=== PATIENT | male | born 2000 | race Caucasian/White ===

== ENCOUNTER 2023-02-26 21:43 | Emergency (ER) | payer OTHER, SELFPAY ==
[2023-02-26 21:45] VITALS: BP 107/65; PULSE 65; RESP 16; TEMP 36.8; O2SAT 98
--- NOTE | 2023-02-26 22:08 | ED.LOWEXI1 ---
HPI - Extremity Injury (Lower) General Chief Complaint: Extremity Injury, Lower Stated Complaint: LOWER EXTREMITY INJURY Time Seen by Provider: 02/26/23 22:06 Mode of arrival: Wheelchair History of Present Illness HPI Narrative: skate boarding about 4 hours ago and twist right ankle. Now presents with pain and swelling. Denies numbness or weakness. Denies other injury Related Data Allergies Allergy/AdvReac Type Severity Reaction Status Date / Time No Known Drug Allergies Allergy Verified 02/26/23 21:50 Review of Systems ROS Status of ROS 10 or more systems reviewed and unremarkable except as noted in history and below [facility] Social History Smoking status: Current every day smoker Exam Constitutional Vital Signs - 24 hr 02/26/23 21:45 Temperature 98.2 F Pulse Rate [Monitor] 65 Respiratory Rate 16 Blood Pressure [Left Arm] 107/65 Pulse Oximetry 98 Common normals: no apparent distress, average body habitus, oriented x3, no limitations and healthy appearing HENMT Common normals: normocephalic and head/scalp atraumatic Eye Common normals: EOMs intact bilaterally and conjunctivae normal Respiratory Common normals: normal respiratory effort, no retractions and no use of accessory muscles Cardio Common normals: regular rate, regular rhythm, S1 normal heart sound and S2 normal heart sound GI Common normals: Normal to inspection, nondistended, normoactive bowel sounds present Extremity Other: mod swelling right lat. malleolus Neuro Common normals: oriented x3, CN's II-XII intact bilaterally, moves all extremities and no focal motor deficits Psych Appearance: grossly normal Course Vital Signs Vital signs: Vital Signs Temperature 98.2 F 02/26/23 21:45 Pulse Rate 65 02/26/23 21:45 Respiratory Rate 16 02/26/23 21:45 Blood Pressure 107/65 02/26/23 21:45 Pulse Oximetry 98 02/26/23 21:45 Temperature 98.2 F 02/26/23 21:45 Pulse Rate 65 02/26/23 21:45 Respiratory Rate 16 02/26/23 21:45 Blood Pressure 107/65 02/26/23 21:45 Pulse Oximetry 98 02/26/23 21:45 MDM - Extremity Injury (Lower) MDM Narrative Medical decision making narrative: patient presents after ankle sprain injury on his skate board. Has focal swelling right lateral malleolus. xray neg for fracture. Patient provided with an air splint and discharged home Discharge Plan Discharge Chief Complaint: Extremity Injury, Lower Clinical Impression: Ankle sprain and strain Patient Disposition: Home, Self-Care Instructions: Ankle Sprain (ED) Stand Alone Forms: Portal Instructions Referrals: Physician,Non-Staff, MD [Primary Care Provider] - 1 week
--- NOTE | 2023-02-26 22:10 | XR_ITS ---
The [address] [address] Patient Name: TIKI PONCE MRN: [id number] date: 2000 Sex: M Assigned Patient Location: ER Current Patient Location: ER Accession/Order Number: [id number] Exam Date: 02/26/2023 22:16 Report Date: 02/26/2023 22:34 At the request of: HUGO SANTOS Procedure: XR ankle RT min 3V EXAM: XR ankle RT min 3V HISTORY: Lateral ankle pain COMPARISON: None. TECHNIQUE: 3 views FINDINGS: IMPRESSION: Lateral subcutaneous soft tissue edema. No osseous lesion, fracture, dislocation or subluxation. Joint spaces are normal. No visualized joint effusion. Electronically authenticated by: VIRGIE TALBERT Date: 02/26/2023 22:34
[2023-02-26] MEDS: IBUPROFEN 400 MG TABLET 800 MG PO (23:38)
== END 2023-02-26 23:43 | disposition home or self-care (01) ==
PROVIDERS: Emergency Provider Internal Medicine
DX: S93.401A Sprain of unspecified ligament of right ankle, initial encounter (principal); S96.911A Strain of unspecified muscle and tendon at ankle and foot level, right foot, initial encounter; X50.1XXA Overexertion from prolonged static or awkward postures, initial encounter; Y93.51 Activity, roller skating (inline) and skateboarding; F17.210 Nicotine dependence, cigarettes, uncomplicated
CPT/HCPCS: 73610; 99283

== ENCOUNTER 2023-08-25 20:08 | Emergency (ER) | payer SELFPAY ==
[2023-08-25 20:31] VITALS: BP 117/69; PULSE 88; RESP 16; TEMP 36.7; O2SAT 96; BMI 19.5
--- NOTE | 2023-08-25 20:43 | XR_ITS ---
The [address] [address] Patient Name: TIKI PONCE MRN: [id number] date: 2000 Sex: M Assigned Patient Location: ER Current Patient Location: ER Accession/Order Number: [id number] Exam Date: 08/25/2023 20:50 Report Date: 08/25/2023 21:08 At the request of: KATHY MCNALLY Procedure: XR foot LT min 3V EXAM: XR foot LT min 3V HISTORY: Mid foot pain COMPARISON: None. TECHNIQUE: 3 views FINDINGS: No osseous lesion, fracture, dislocation or subluxation. Joint spaces are normal. No visualized effusion. No visualized soft tissue edema. XR/XR foot LT min 3V IMPRESSION: Normal x-rays Electronically authenticated by: VIRGIE TALBERT Date: 08/25/2023 21:08
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
[2023-08-25] MEDS: ACETAMINOPHEN 500 MG TABLET 1000 MG PO (21:05)
== END 2023-08-25 21:32 | disposition home or self-care (01) ==
PROVIDERS: Emergency Provider Internal Medicine
DX: S93.602A Unspecified sprain of left foot, initial encounter (principal); M79.672 Pain in left foot; X50.9XXA Other and unspecified overexertion or strenuous movements or postures, initial encounter; F17.210 Nicotine dependence, cigarettes, uncomplicated
CPT/HCPCS: 73630; 99283